=== PATIENT | female | born 1975 | race Caucasian/White ===

== ENCOUNTER 2017-08-02 12:03 | Emergency (ER) | payer OTHER ==
[~2017-08-02] VITALS: Ht 167.6 cm; Wt 92.2 kg
[2017-08-02] MEDS ORDERED: PANTOPRAZOLE SO40 MG PO (12:20)
[2017-08-02] MEDS ORDERED: LEVAQUIN250 MG PO (12:20)
[2017-08-02] MEDS ORDERED: FAMOTIDINE 20 MG/2 ML VIAL IV STA (12:37)
[2017-08-02] MEDS ORDERED: BELLADONNA ALK/PHENOBARBITAL 5 ML UDC PO ONE (12:45)
[2017-08-02] MEDS ORDERED: SODIUM CHLORIDE 0.9% 1000ML 1,000 ML IV SCH (12:45)
[2017-08-02] MEDS ORDERED: LIDOCAINE VISC 2% SOLN 15 ML UDC PO ONE (12:45)
[2017-08-02] MEDS ORDERED: MAGNESIUM/ALUMINUM/SIMETHICONE 30 ML UDC PO ONE (13:30)
== END 2017-08-02 14:25 | disposition home or self-care (01) ==
LOC: FSED 12:03
DX: H81.10 Benign paroxysmal vertigo, unspecified ear (principal); K29.00 Acute gastritis without bleeding; K21.9 Gastro-esophageal reflux disease without esophagitis; T88.7XXA Unspecified adverse effect of drug or medicament, initial encounter
CPT/HCPCS: 70450; 80053; 81003; 81025; 85025; 93005; 96360; 96374; 99284

== ENCOUNTER 2017-09-11 12:27 | Emergency (ER) | payer OTHER ==
[~2017-09-11] VITALS: Ht 167.6 cm; Wt 92.1 kg
[~2017-09-11 12:27] MED LIST: LEVAQUIN250 MG PO; PANTOPRAZOLE SO40 MG PO
--- OUTSIDE RECORDS SUMMARY | 2017-09-11 12:30 | XMS REPORT | Continuity of Care Document ---
Author Author [facility] Organization [facility] Address [address] [place] [address] Phone Unavailable Care Team Providers Care Lead Recreation Assistant Name Role Phone NO, PCP PCP Unavailable Insurance Providers Guarantor Vikram Medeiros Address [address] [place] [address] [place] [address] Email [email or web address] Payer [employer] Policy Number [id number] Subscriber's Name MedeirosVikram Noni Relationship 18 Self / Same As Patient Group Number [id number] Group Name [employer] Effective Date 17 Advance Directives Directive Response Recorded Date/Time Does the patient have an advance directive? No 11/16/09 12:15pm If yes, is advance directive on file with [facility]? No 11/16/09 12:15pm If not on file with [facility] will patient provide a copy? No 08/02/17 1:50pm Do you have a Directive to Physician? No 08/02/17 1:50pm Do you have a Medical Power of Magnetic Grinder Operator? No 08/02/17 1:50pm Do you have an out of hospital Do Not Resuscitate Order? No 08/02/17 1:50pm Do you have any special needs we should be aware of? No 08/02/17 1:50pm Do you have a support person here with you today? No 08/02/17 1:50pm Did patient receive Notice of Privacy Practices? Yes 08/02/17 1:50pm Did patient receive patient rights and responsibilities? Yes 08/02/17 1:50pm Problems No problem information available. Medications Current Home Medications Medication Dose Units Route Directions Days Qty Instructions Start Date Levofloxacin (Levaquin) 250 Mg Tablet 250 Mg Oral Daily 30 Tab Pantoprazole Sodium (Protonix) 40 Mg Tablet. 40 Mg Oral Social History Smoking Status Start Date Stop Date Never Smoker Hospital Discharge Instructions No hospital discharge instruction information available. Plan of Care Discharge Date 08/02/17 2:25pm Disposition HOME, SELF-CARE Condition at Discharge Stable Instructions/Education Provided [place] Diet - Adult Dizziness Forms Provided Work/School Excuse Prescriptions See Medication Section Additional Instructions/Education STOP the Levaquin, as it could be causing your symptoms of dizziness You urine test was CLEAR today, without any evidence of bacteria, so further antibiotic therapy is not indicated. You may take Meclizine 25 mg - 1 tab every 6 hours, as needed, for dizziness. For you abdominal pain: - Continue the Pantoprazole and add Ranitidine 150 mg daily, @ 12 hours apart from when you take the Pantoprazole. - [place] diet: avoid fried, fatty and fast foods, until your stomach symptoms have resolved. Functional Status No functional status information available. Allergies, Adverse Reactions, Alerts No known allergies. Immunizations No immunization information available. Vital Signs Acute Vital Signs Vital Response Date/Time Height 5 ft 6 in 08/02/2017 12:05pm Weight 203.38 lb 08/02/2017 12:05pm Body Mass Index 32.8 kg/m^2 08/02/2017 12:05pm Results No relevant diagnostic test, laboratory data and/or discharge summary information available. Procedures No procedure information available. Encounters Encounter Location Arrival/Admit Date Discharge/Depart Date Attending Provider Departed Emergency Room [facility] 08/02/17 12:03pm 08/02 2:25pm NAHEED WRAY MD
[2017-09-11] MEDS ORDERED: DONNATAL/LIDOCAINE/MAALOX 30 ML SUSP PO ONE (13:15)
[2017-09-11 14:31] VITALS: BP 112/70
== END 2017-09-11 14:33 | disposition home or self-care (01) ==
LOC: FSED 12:27
DX: R10.31 Right lower quadrant pain (principal); R11.2 Nausea with vomiting, unspecified; K21.0 Gastro-esophageal reflux disease with esophagitis; F41.1 Generalized anxiety disorder
CPT/HCPCS: 71045; 99283